=== PATIENT | male | born 2000 | race Caucasian/White ===

== ENCOUNTER 2018-10-01 16:42 | Emergency (ER) | payer BC ==
[~2018-10-01] VITALS: Ht 172.7 cm; Wt 59.1 kg
[2018-10-01] MEDS ORDERED: PROTOPIC0.1% TP (16:50)
[2018-10-01 17:50] LABS: BASO % 0.5 % (0.0-2.0); EOS # 0.2 (0.0-0.7); EOS % 2.5 % (0-4.0); GRAN # 3.2 (1.4-6.5); GRAN % 48.9 % (42.2-75.2); HEMATOCRIT 49.8 % (36.0-47.0); HEMOGLOBIN 17.6 g/dl (12.5-16.1); LYMPH # 2.6 (1.2-3.4); LYMPH % 40.4 % (20.0-51.0); MEAN CELL VOLUME 80 fl (80.0-95.0); MEAN CORPUSCULAR HEMOGLOBIN 28 pg (26.0-32.0); MEAN CORPUSCULAR HGB CONC 35 g/dl (33.0-37.0); MEAN PLATELET VOLUME 9.8 fl (7.4-10.4); MONO # 0.5 (0.1-0.6); MONO % 7.1 % (1.7-9.3); PLATELET COUNT 275 K/mm3 (130-400); RED BLOOD COUNT 6.21 M/mm3 (4.20-5.60); REDCELL DISTRIBUTION WIDTH-CV 12.1 % (11.5-14.5)
[2018-10-01 18:13] LABS: ALANINE AMINOTRANSFERASE 36 U/L (21-72); ALBUMIN 5.1 gm/dL (3.5-5.0); ALKALINE PHOSPHATASE 93 U/L (50-136); ANION GAP 9 mmol/L (7-16); AST,SGOT 29 U/L (15-37); BILIRUBIN,TOTAL 0.6 mg/dL (0.0-1.0); BLOOD UREA NITROGEN 14 mg/dL (9-20); C-REACTIVE PROTEIN < 0.5 mg/dL (0.0-0.9); CALCIUM 10.3 mg/dL (8.4-10.2); CARBON DIOXIDE 28 mmol/L (22-30); CHLORIDE 106 mmol/L (98-107); CREATININE, serum 0.89 mg/dL (0.66-1.25); GLUCOSE 95 mg/dL (74-106); POTASSIUM 3.8 mmol/L (3.4-5.0); SODIUM 143 mmol/L (137-145); TOTAL PROTEIN 8.3 gm/dL (6.4-8.2)
[2018-10-01 18:22] LABS: TROPONIN-I < 0.012 ng/mL (0.000-0.034)
[2018-10-01 18:48] VITALS: BP 98/62; PULSE 59; TEMP 98.3
== END 2018-10-01 18:48 | disposition home or self-care (01) ==
LOC: COL.ER 16:42
PROVIDERS: Physician Assistant
DX: R07.89 Other chest pain (principal)

== ENCOUNTER → 2020-10-16 | Outpatient (CLI) | payer BC ==
[~2020-10-16] MED LIST: PROTOPIC0.1% TP
== END ==
LOC: COL.LAB 15:58
DX: M79.661 Pain in right lower leg (principal)

== ENCOUNTER 2020-12-09 17:22 | Emergency (ER) | payer BC ==
[~2020-12-09] VITALS: Ht 172.7 cm; Wt 63.6 kg
[2020-12-09 17:39] VITALS: TEMP 98.6
[2020-12-09 19:50] VITALS: BP 123/72; PULSE 88
== END 2020-12-09 19:50 | disposition home or self-care (01) ==
LOC: COL.ER 17:22
DX: R07.89 Other chest pain (principal); Z20.822 Contact with and (suspected) exposure to COVID-19; Z87.891 Personal history of nicotine dependence
CPT/HCPCS: J1885